=== PATIENT | male | born 1990 | race Two or more races ===

== ENCOUNTER 2023-07-08 08:56 | Day surgery (SDC) | payer OTHER ==
[~2023-07-08] VITALS: Ht 180.3 cm; Wt 80.7 kg
[2023-07-08] MEDS ORDERED: LIDOCAINE 2% 100 MG/5 ML UJET TP ONE (13:05)
[2023-07-08] MEDS ORDERED: MIDAZOLAM 5 MG/5 ML VIAL ONE (13:05)
[2023-07-08] MEDS ORDERED: fentaNYL citrate 0.05 MG/ML VIAL ONE (13:05)
[2023-07-08] MEDS ORDERED: fentaNYL citrate 0.05 MG/ML VIAL IVP ONE (18:25)
== END 2023-07-08 14:00 | disposition home or self-care (01) ==
LOC: MOR 08:56 → MMU 10:19 → MOR 14:00
PROVIDERS: ATTEND Internal Medicine Gastroenterology
DX: K62.5 Hemorrhage of anus and rectum (principal); Z79.899 Other long term (current) drug therapy
CPT/HCPCS: 45378; J3010; J2250